=== PATIENT | female | born 1985 | race American Indian/Alaskan Native ===

== ENCOUNTER 2021-02-14 07:00 | Inpatient (IN) | payer BC ==
[2021-02-14] MEDS ORDERED: miSOPROStol 100 MCG TAB ONE ×2 (07:32→07:34)
[2021-02-14] MEDS ORDERED: miSOPROStol 200 MCG TAB PR SCH (08:00)
--- NOTE | 2021-02-14 08:20 | History and Physical Report ---
History of Present Illness Date of examination: 02/14/21 Date of admission: 02/14/21 07:15 Chief complaint: painful contractions that woke her out of bed History of present illness: at 37.1wks with EDC 03/05/21. Pt states that she was asleep when she was awakened by painful contractions and decided she needed to reach the hospital and get an epidural. care at [facility] and pt has not seen the clinic since she was 32wks because she was planning to deliver elsewhere. Pt denies LOF, vaginal bleeding or headache. Pt desires epidural and screaming with each contraction moving upwards in bed. Past History Past Medical History: no pertinent history - Obstetrical History : 3 Medications and Allergies Allergies Allergy/AdvReac Type Severity Reaction Status Date / Time No Known Allergies Allergy Unverified 02/14/21 07:29 Active Meds: Active Medications Bisacodyl (Bisacodyl 10 Mg Rect Supp) 10 mg CA BID PRN PRN Reason: Constipation Diphenhydramine HCl (Diphenhydramine 25 Mg Cap) 25 mg PO Q6H PRN PRN Reason: Itching Docusate Sodium (Docusate Sodium 100 Mg Cap) 100 mg PO BID ONEL Ephedrine Sulfate (Ephedrine Sulfate 50 Mg/1 Ml Inj) 10 mg IV Q2M PRN PRN Reason: Hypotension Hydrocortisone Acetate (Hydrocortisone 25 Mg Rectal Supp) 25 mg CA BID PRN PRN Reason: Hemorrhoids Oxytocin/Sodium Chloride (Pitocin/Ns 30 Unit/500ml) 30 units in 500 mls @ 2 mls/hr IV TITR ONEL; Protocol Lactated Ringer's (Lactated Ringers) 1,000 mls @ 125 mls/hr IV DIRECT ONEL Oxytocin/Sodium Chloride (Pitocin/Ns 30 Unit/500ml) 30 units in 500 mls @ 40 mls/hr IV TITR ONEL; Protocol Ibuprofen (Ibuprofen 600 Mg Tab) 600 mg PO Q6H ONEL Lidocaine (Lidocaine (2%) 20 Mg/1 Ml Vial 20 Ml Mdv) 20 ml INFILTRATI ONCE ONEL Stop: 02/15/21 08:29 Magnesium Hydroxide (Magnesium Hydroxide (Mom) Oral Liqd Udc) 30 ml PO HS PRN PRN Reason: Constipation Mineral Oil (Mineral Oil 30 Ml Oral Liqd) 30 ml PO QHS PRN PRN Reason: Constipation Misoprostol (Misoprostol 200 Mcg Tab) 800 mcg CA ONCE ONEL Stop: 02/14/21 12:00 Multi-Ingredient Ointment (Lanolin/Zinc/Dimethicone (Lansinoh) 7 Gm) 1 applic TP PRN PRN PRN Reason: Sore Nipples Multivitamins/Iron/Calcium ( [id number]-[id number] Fumarate-Folic Acid Vit Tab) 1 each PO QDAY ONEL Ondansetron HCl (Ondansetron 4 Mg/2 Ml Inj) 4 mg IV Q8H PRN PRN Reason: Nausea And Vomiting Oxycodone/Acetaminophen (Oxycodone /Acetaminophen 5-325mg Tab) 1 tab PO Q6H PRN PRN Reason: Pain, Moderate (4-6) Promethazine HCl (Promethazine 25 Mg Rect Supp) 25 mg CA Q6H PRN PRN Reason: Nausea And Vomiting Promethazine HCl (Promethazine 25 Mg Tab) 25 mg PO Q6H PRN PRN Reason: Nausea And Vomiting Sodium Chloride (Sodium Chloride 0.9% 10 Ml Flush Syringe) 10 ml IV PRN NR Terbutaline Sulfate (Terbutaline 1 Mg/1 Ml Inj) 0.25 mg SUB-Q ONCE PRN PRN Reason: Hyperstimulation/Hypertonicity Witch Opal/Glycerin (Witch Opal/ Glycerin Pad) 1 each TP PRN PRN PRN Reason: Hemorrhoid/cleansing/soothing Review of Systems All systems: negative (painful contraction with desire to push) - Vital Signs Vital signs: Vital Signs Pulse Pulse Ox 108 H 99 02/14/21 07:04 02/14/21 07:04 Temp Pulse Resp BP Pulse Ox 98.2 F 100 H 16 140/78 100 02/14/21 07:27 02/14/21 08:14 02/14/21 07:27 02/14/21 08:14 02/14/21 08:10 - Physical Exam Breasts: Positive: deferred Cardiovascular: Regular rate Lungs: Positive: Normal air movement Abdomen: Positive: normal appearance Genitourinary (Female): Positive: normal external genitalia Vulva: both: normal Vagina: Positive: normal moisture Uterus: Positive: enlarged Extremities: Positive: normal - Obstetrical FHR: category 1 Uterine Contraction Monitor Mode: External Cervical Dilatation: 8 (by triage nurse) Cervical Effacement Percentage: 90 station: 0 Uterine Contraction Pattern: Regular Results Result Diagrams: 02/14/21 07:50 All other labs normal. Assessment and Plan Term IUP, non-compliant with care, here in active labor. GBS not done since pt has not had care since 32wks 1. Admit to labor and delivery 2. Notify NICU in case fetus dates inaccurate with no records 3. Pt told that she has an IV access however not enough time to get epidural, but she may have IV meds 4. Will plan for precipitous delivery. Please see delivery note Plan of care explained to patient in detail and pt agrees to be delivered. Expect . Will request the records that are available from [facility] All questions encouraged and answered
[2021-02-14 08:28] LABS: Hemoglobin 8.3 gm/dl (10.1-14.3); Mean Corpuscular HGB Conc 31 % (30-34); Mean Corpuscular Volume 70 fl (79-97); Platelet Count 223 K/mm3 (140-440); Red Blood Count 3.85 M/mm3 (3.65-5.03); Red Cell Distribution Width 17.6 % (13.2-15.2)
[2021-02-14] MEDS ORDERED: MINERAL OIL 30 ML ORAL LIQD PO PRN (08:30)
[2021-02-14] MEDS ORDERED: LACTATED RINGERS 1,000 ML IV SCH (08:30)
[2021-02-14] MEDS ORDERED: ONDANSETRON 4 MG/2 ML INJ IV PRN (08:30)
[2021-02-14] MEDS ORDERED: LIDOCAINE (2%) 20 MG/1 ML VIAL 20 ML MDV INFILTRATI SCH (08:30)
[2021-02-14] MEDS ORDERED: WITCH HAZEL/ GLYCERIN PAD TP PRN (08:30)
[2021-02-14] MEDS ORDERED: ePHEDrine SULFATE 50 MG/1 ML INJ IV PRN (08:30)
[2021-02-14] MEDS ORDERED: diphenhydrAMINE 25 MG CAP PO PRN (08:30)
--- NOTE | 2021-02-14 08:33 | Procedure Note ---
OB Delivery Note - Delivery Date of Delivery: 02/14/21 Surgeon: JERMAINE VALADEZ Estimated blood loss: 300cc - Vaginal Delivery presentation: vertex Delivery position: OA Intrapartum events: precipitous labor- <3hr Delivery induction: none Delivery monitor: external FHT, external uterine Route of delivery: Delivery placenta: spontaneous Delivery laceration: 1st degree (to left labia and perineum) Delivery repair: chromic Anesthesia: local Delivery comments: Called by nurse to do precipitous vaginal delivery. SAVD uncomplicated viable male with pt screaming and running upwards in bed, very uncontrolled. Pt sustained 1st lacerations to left labia and perineum and both repaired with 2-0 chromic running locked suture and lidocaine anesthetic with good effect. Spontaneous delivery of intact placenta with 3vessel cord. NICU was present for delivery and baby doing well. Mom and baby stable.l - Infant A at 1 minute: 8 at 5 minutes: 9 Infant Gender: Male (wt 3800g; clear amniotic fluid)
[2021-02-14] MEDS ORDERED: PROMETHAZINE 25 MG RECT SUPP PR PRN (09:00)
[2021-02-14] MEDS ORDERED: LANOLIN/ZINC/DIMETHICONE (LANSINOH) 7 GM TP PRN (09:00)
[2021-02-14] MEDS ORDERED: OXYTOCIN DRIP 30 UNITS/500 ML BAG IV SCH ×2 (09:00)
[2021-02-14] MEDS ORDERED: PROMETHAZINE 25 MG TAB PO PRN (09:00)
[2021-02-14] MEDS ORDERED: TERBUTALINE 1 MG/1 ML INJ SUB-Q PRN (09:00)
[2021-02-14] MEDS ORDERED: HYDROCORTISONE 25 MG RECTAL SUPP PR PRN (09:00)
[2021-02-14] MEDS ORDERED: oxyCODONE /ACETAMINOPHEN 5-325MG TAB PO PRN (09:00)
[2021-02-14] MEDS: PRENATAL VIT27-FE FUMARATE-FOLIC ACID VIT TAB PO SCH (10:20)
[2021-02-14] MEDS: IBUPROFEN 600 MG TAB PO SCH ×3 (10:20→21:35)
[2021-02-14] MEDS: DOCUSATE SODIUM 100 MG CAP PO SCH ×2 (10:20→21:35)
[2021-02-14] MEDS ORDERED: BENZOCAINE/MENTHOL 20/0.5% TOP SPRAY 56 GM TP PRN (11:00)
[2021-02-14] MEDS ORDERED: MAGNESIUM HYDROXIDE (MOM) ORAL LIQD UDC PO PRN (22:00)
[2021-02-14 22:19] LABS: Hematocrit 26.2 % (30.3-42.9); Hemoglobin 8.2 gm/dl (10.1-14.3)
[2021-02-15] MEDS: IBUPROFEN 600 MG TAB PO SCH ×3 (05:57→16:26)
[2021-02-15] MEDS: DOCUSATE SODIUM 100 MG CAP PO SCH (10:51)
[2021-02-15] MEDS: PRENATAL VIT27-FE FUMARATE-FOLIC ACID VIT TAB PO SCH (10:51)
--- NOTE | 2021-02-15 12:11 | Progress Note ---
Assessment and Plan A: Day 1 Asymptomatic Anemia P: Follow routine orders Infed 100mg IM x 1 dose Ferrous Sulfate 325mg PO BID Depo 150mg IM x 1 dose prior to discharge Discharge home in the a.m. Subjective - Subjective Date of service: 02/15/21 Principal diagnosis: s/p ; Day 1 Patient reports: appetite normal, voiding normally, pain well controlled, flatus, ambulating normally, other (Denies fatigue, dizziness, or shortness of breath.) [place]: doing well, bottle feeding (and ) Objective - Vital Signs Latest vital signs: Vital Signs Temp Pulse Resp BP BP Pulse Ox 02/15/21 08:05 98.3 F 80 18 112/62 98 02/15/21 05:57 18 02/15/21 01:05 99.1 F 83 20 144/52 100 02/14/21 22:35 18 02/14/21 21:35 18 02/14/21 16:54 16 02/14/21 16:20 98.2 F 75 18 104/51 98 02/14/21 15:54 16 02/14/21 12:20 98.1 F 98 H 18 126/67 98 Intake and Output 02/14/21 02/15/21 02/15/21 22:59 06:59 14:59 Intake Total 240 480 360 Output Total 800 Balance 240 480 -440 Intake: Oral 240 480 120 Intake, Free Water 240 Output: Urine 800 Void 800 Other: Total, Intake Amount 240 240 120 Total, Output Amount 800 # Voids Void 1 1 1 - Exam Breasts: Present: normal Cardiovascular: Present: Regular rate, Normal S1, Normal S2 Lungs: Present: Clear to auscultation, Normal air movement Abdomen: Present: normal appearance, soft, normal bowel sounds Uterus: Present: normal, firm, fundal height below umbilicus Extremities: Present: normal - Labs Labs: Abnormal lab results 02/14/21 Range/Units 21:50 Hgb 8.2 L (10.1-14.3) gm/dl Hct 26.2 L (30.3-42.9) %
--- NOTE | 2021-02-15 12:24 | Discharge Summary ---
Providers - Providers Date of Admission: 02/14/21 07:15 Date of discharge: 02/16/21 Attending physician: JERMAINE VALADEZ Primary care physician: JERMAINE VALADEZ Hospitalization Reason for admission: active labor Delivery: Episiotomy: none Laceration: 1st degree (left labial and perineal) Other procedures: none complications: none Discharge diagnosis: IUP at term delivered [place] baby: male Condition at discharge: Good Disposition: DC-01 TO HOME OR SELFCARE Plan - Provider Discharge Summary Activity: routine, no sex for 6 weeks, no heavy lifting 4 weeks, no strenuous exercise Diet: routine Instructions: routine Additional instructions: [] Smoking cessation referral if applicable(refer to patient education folder for contact #) [] Refer to [facility]'s [facility] Booklet Call your doctor immediately for: * Fever > 100.5 * Heavy vaginal bleeding ( >1 pad per hour) * Severe persistent headache * Shortness of breath * Reddened, hot, painful area to leg or breast * Drainage or odor from incision. * Keep incision clean and dry at all times and follow doctor's instructions regarding bathing/showering - Follow up plan Follow up: JERMAINE VALADEZ MD [Primary Care Provider] - 6 Weeks
[2021-02-15] MEDS ORDERED: IRON DEXTRAN COMPLEX 100 MG/2 ML INJ IM SCH (12:30)
[2021-02-15] MEDS ORDERED: FERROUS SULFATE 325 MG TAB PO SCH (13:00)
[2021-02-15] MEDS ORDERED: medroxyPROGESTERone ACETATE 150 MG/ML SYRINGE IM SCH (13:00)
[2021-02-15 17:06] VITALS: BP 101/62
== END 2021-02-15 18:45 | disposition home or self-care (01) | DRG 807 ==
LOC: TRG 07:00 → LD 07:03 → TRG 07:15 → LD 07:15 → OB 09:22
PROVIDERS: ADMIT Obstetrics & Gynecology; ATTEND Obstetrics & Gynecology
PROC: 10E0XZZ Delivery of Products of Conception, External Approach (ICD-10-PCS; principal; 2021-02-14)
PROC: 0HQ9XZZ Repair Perineum Skin, External Approach (ICD-10-PCS; 2021-02-14)
DX: O62.3 Precipitate labor (principal); Z37.0 Single live birth; O70.0 First degree perineal laceration during delivery; Z3A.37 37 weeks gestation of pregnancy; O90.81 Anemia of the puerperium; Z20.822 Contact with and (suspected) exposure to COVID-19
CPT/HCPCS: 36415; 85014; 85018; 85027; 86592; 86706; 86762; 86850; 86900; 86901; 87806; G0378; U0003